=== PATIENT | male | born 1990 | race African-American/Black ===

== ENCOUNTER 2019-09-23 12:47 | Inpatient (IN) ==
[2019-09-23] MEDS ORDERED: diphenhydrAMINE 50 MG/1 ML VIAL IV PRN (13:23)
[2019-09-23] MEDS ORDERED: cloNIDine 0.1 MG TABLET PO PRN (13:23)
[2019-09-23] MEDS ORDERED: LOPERAMIDE 2 MG CAPSULE PO PRN (13:23)
[2019-09-23] MEDS ORDERED: SENNA 8.6 MG TABLET PO PRN (13:23)
[2019-09-23] MEDS ORDERED: DICYCLOMINE 10 MG CAPSULE PO PRN (13:23)
[2019-09-23] MEDS ORDERED: ALUMINUM/MAGNES/SIMETH MAX STR 30 ML UDCUP PO PRN (13:23)
[2019-09-23] MEDS ORDERED: ONDANSETRON 4 MG/2 ML VIAL IV PRN (13:23)
[2019-09-23] MEDS ORDERED: LORazepam 2 MG/1 ML VIAL IV PRN (13:23)
[2019-09-23] MEDS ORDERED: rOPINIRole 1 MG TABLET PO PRN (13:23)
[2019-09-23] MEDS: SODIUM CHLORIDE 0.9% 1,000 ML IV SCH (14:09)
[2019-09-23] MEDS: HydrOXYzine PAMOATE 25 MG CAPSULE PO PRN (14:09)
[2019-09-23] MEDS: BUPRENORPHINE SL TAB 2 MG TABLET SL SCH ×2 (14:09→21:56)
[2019-09-23 14:32] LABS: Basophils % 0.2 % (0.0-0.8); Eosinophils # 0.2 10*3/uL (0.0-0.87); Eosinophils % 2.1 % (0.00-10.9); Hematocrit 41.8 VOL% (42.0-52.0); Hemoglobin 12.9 GM/DL (14.0-18.0); Immature Granulocytes % 0.1 %; Immature Granulocytes Absolute 0.01 #; Lymphocytes # 2.1 10*3/uL (1.4-4.0); Lymphocytes % 24.8 % (21.2-54.2); Mean Corpuscular HGB Conc 30.9 GM/DL (32-36); Mean Corpuscular Volume 71.1 FL (87-102); Mean Platelet Volume 9.5 FL (9.6-12.0); Monocytes % 5.8 % (1.7-12.7); Platelet Count 214 T/CUMM (130-400); Red Blood Count 5.88 MC/CUMM (3.8-5.5); White Blood Count 8.4 T/CUMM (4-12)
[2019-09-23 14:41] LABS: INR 0.9; PT Patient Result 10.3 SECS (9.6-12.2)
[2019-09-23 15:00] LABS: Alanine Aminotransferase 15 U/L (16-61); Albumin 4.1 G/DL (3.4-5.0); Alkaline Phosphatase 46 U/L (45-117); Amylase 88 U/L (25-115); Aspartate Amino Transferase 13 U/L (0-37); Blood Urea Nitrogen 12 MG/DL (7-18); Calcium 8.8 MG/DL (8.5-10.1); Estimated Glom Filtration Rate 114 ML/MIN; Glucose 87 MG/DL (74-106); Osmolality,Calculated 273.7 MOS/KG (273-304); Total Protein 7.4 G/DL (6.4-8.3)
[2019-09-23 18:30] LABS: Apearance,Urine CLEAR (Clear); Bilirubin,Urine Negative (Negative); Blood, Urine Negative (Negative); Glucose,Urine (UA) Negative (Negative); Ketones,Urine Negative (Negative); Mucus,Urine Occasional /LPF (Occasional); Nitrite,Urine Negative (Negative); Protein,Urine Negative; Urine Color Straw (Yellow); Urine Specific Gravity 1.006 (1.001-1.035); Urine Urobilinogen < 2.0 EU/DL (0.2-1.0); WBC,Urine <1 /HPF (0-6)
[2019-09-23] MEDS: traZODone 50 MG TABLET PO PRN (20:03)
[2019-09-23] MEDS: METHOCARBAMOL 750 MG TABLET PO PRN (20:03)
[2019-09-23 22:33] LABS: Barbiturates Screen,Urine Negative (Negative); Benzodiazepines Screen,Urine Negative (Negative); Cannabinoid Screen,Urine Negative (Negative); Opiate Screen,Urine Positive (Negative); Phencyclidine Screen,Urine Negative (Negative)
[2019-09-24] MEDS: BUPRENORPHINE SL TAB 2 MG TABLET SL SCH ×3 (06:31→22:08)
[2019-09-24] MEDS: HydrOXYzine PAMOATE 25 MG CAPSULE PO PRN ×3 (06:32→19:19)
[2019-09-24] MEDS: SODIUM CHLORIDE 0.9% 1,000 ML IV SCH ×2 (06:32→20:00)
[2019-09-24] MEDS ORDERED: NICOTINE 21 MG/24 HR PATCH TRANSDERM SCH (09:00)
[2019-09-24] MEDS: NICOTINE 21 MG/24 HR PATCH TRANSDERM SCH (09:39)
[2019-09-24] MEDS: MULTIVITAMIN (CENTRUM) TABLET PO SCH (09:39)
[2019-09-24] MEDS: FOLIC ACID 1 MG TABLET PO SCH (09:39)
[2019-09-24] MEDS: THIAMINE 100 MG TABLET PO SCH (09:39)
[2019-09-24] MEDS: ACETAMINOPHEN 500 MG TABLET PO PRN ×3 (09:45→19:19)
[2019-09-25] MEDS: METHOCARBAMOL 750 MG TABLET PO PRN ×3 (02:11→20:22)
[2019-09-25] MEDS: traZODone 50 MG TABLET PO PRN ×2 (02:11→20:22)
[2019-09-25] MEDS: BUPRENORPHINE SL TAB 2 MG TABLET SL SCH ×2 (05:24→12:58)
[2019-09-25] MEDS: SODIUM CHLORIDE 0.9% 1,000 ML IV SCH (08:49)
[2019-09-25] MEDS: NICOTINE 21 MG/24 HR PATCH TRANSDERM SCH (08:49)
[2019-09-25] MEDS: FOLIC ACID 1 MG TABLET PO SCH (08:50)
[2019-09-25] MEDS: THIAMINE 100 MG TABLET PO SCH (08:50)
[2019-09-25] MEDS: MULTIVITAMIN (CENTRUM) TABLET PO SCH (08:50)
[2019-09-25] MEDS: FLUTICASONE 50 MCG NASAL SPRAY 16 GM BOTTLE BOTH NARES SCH ×2 (08:55→20:25)
[2019-09-25] MEDS: ACETAMINOPHEN 500 MG TABLET PO PRN ×3 (08:58→20:22)
[2019-09-25] MEDS: HydrOXYzine PAMOATE 25 MG CAPSULE PO PRN ×2 (13:00→20:21)
[2019-09-26] MEDS: BUPRENORPHINE SL TAB 2 MG TABLET SL SCH (01:11)
[2019-09-26 07:37] VITALS: BP 110/73
[2019-09-26] MEDS: THIAMINE 100 MG TABLET PO SCH (08:25)
[2019-09-26] MEDS: FOLIC ACID 1 MG TABLET PO SCH (08:25)
[2019-09-26] MEDS: MULTIVITAMIN (CENTRUM) TABLET PO SCH (08:25)
[2019-09-26] MEDS: FLUTICASONE 50 MCG NASAL SPRAY 16 GM BOTTLE BOTH NARES SCH (08:26)
[2019-09-26] MEDS: NICOTINE 21 MG/24 HR PATCH TRANSDERM SCH (08:26)
== END 2019-09-26 10:35 | disposition home or self-care (01) | DRG 773 ==
LOC: N.4E 13:40 → SUATTDRO 13:40
PROVIDERS: ADMIT Internal Medicine; ATTEND Internal Medicine